=== PATIENT | female | born 1965 | race Caucasian/White ===

== ENCOUNTER → 2016-12-14 | Outpatient (CLI) | payer BC ==
[~2016-12-14] MED LIST: AMBIEN CR6.25 MG PO; ASPIRIN325 MG PO; CLONAZEPAM0.5 MG PO; FLONASE16 G1 BOTH NARES; METOPROLOL TART50 MG PO; PROTONIX40 MG PO; ULTRAM50 MG PO; ZANTAC150 MG PO
== END | disposition home or self-care (01) ==
LOC: NUC 07:17
DX: K21.9 Gastro-esophageal reflux disease without esophagitis (principal); R13.10 Dysphagia, unspecified
CPT/HCPCS: 78264; A9541

== ENCOUNTER 2017-01-19 06:35 | Day surgery (SDC) | payer BC ==
[~2017-01-19] VITALS: Ht 162.6 cm; Wt 84.0 kg
[~2017-01-19 06:35] MED LIST changes: +ACIPHEX20 MG PO; +MOTRIN IB200 MG PO; +PROSOURCE ZAC PO; +SINGULAIR10 MG PO; +TYLENOL EXTRA500 MG PO
[2017-01-19 07:22] VITALS: BP 121/79
[2017-01-19 14:00] VITALS: BP 122/70
[2017-01-19 15:00] VITALS: BP 124/69
== END 2017-01-19 15:27 | disposition home or self-care (01) ==
LOC: SDC 06:35
PROC: 09SM4ZZ Reposition Nasal Septum, Percutaneous Endoscopic Approach (ICD-10-PCS; principal; 2017-01-19)
PROC: 09BV4ZZ Excision of Left Ethmoid Sinus, Percutaneous Endoscopic Approach (ICD-10-PCS; 2017-01-19)
PROC: 09BU4ZZ Excision of Right Ethmoid Sinus, Percutaneous Endoscopic Approach (ICD-10-PCS; 2017-01-19)
PROC: 09BK4ZX Excision of Nasal Mucosa and Soft Tissue, Percutaneous Endoscopic Approach, Diagnostic (ICD-10-PCS; 2017-01-19)
DX: J32.1 Chronic frontal sinusitis (principal); J32.2 Chronic ethmoidal sinusitis; J34.2 Deviated nasal septum; J34.89 Other specified disorders of nose and nasal sinuses; J33.0 Polyp of nasal cavity; G47.30 Sleep apnea, unspecified; F32.9 Major depressive disorder, single episode, unspecified; J45.909 Unspecified asthma, uncomplicated; I49.9 Cardiac arrhythmia, unspecified; I95.9 Hypotension, unspecified; K21.9 Gastro-esophageal reflux disease without esophagitis; K44.9 Diaphragmatic hernia without obstruction or gangrene
CPT/HCPCS: 88305; J0131; J0690; J1100; J1170; J2060; J2250; J2405; J2550; J2765; J3010; J3301; J7050

== ENCOUNTER 2017-09-28 14:21 | Emergency (ER) | payer BC ==
[~2017-09-28] VITALS: Ht 162.6 cm; Wt 83.6 kg
[2017-09-28 15:22] LABS: HEMATOCRIT 43.8 % (36.0-46.0); HEMOGLOBIN 15.4 G/DL (11.9-15.5); MCH 33.8 PG (29.0-34.0); MCHC 35.2 G/DL (30.0-36.0); MCV 96.3 FL (83-99); PLATELET COUNT 303 K/uL (156-360); RBC DIS.WIDTH-CV 14.5 % (11.8-14.6); RBC DIS.WIDTH-SD 51.1 % (39-53); RED BLOOD COUNT 4.55 M/uL (3.80-5.20); WHITE BLOOD COUNT 7.7 K/uL (4.1-10.2)
[2017-09-28 15:31] LABS: CHLORIDE 104 mEq/L (99-109); POTASSIUM 3.6 mEq/L (3.7-5.4); SODIUM 139 mEq/L (136-147)
[2017-09-28 15:32] LABS: GLUCOSE 84 mg/dL (70-99)
[2017-09-28 15:36] LABS: CREATININE 0.8 mg/dL (0.6-1.3); GFR ESTIMATE (CALCULATED) > 59 mL/min/
[2017-09-28 15:37] LABS: UREA NITROGEN (BUN) 14 mg/dL (9-23)
[2017-09-28 15:42] LABS: TROP-I INTERPRETATION NEGATIVE; TROPONIN-I < 0.01 ng/mL (0.0-0.30)
[2017-09-28 17:11] LABS: APPEARANCE CLEAR ((CLEAR)); BILIRUBIN NEGATIVE; BLOOD NEGATIVE; COLOR STRAW ((YELLOW)); GLUCOSE (STRIP) NEGATIVE; KETONES NEGATIVE; LEUKOCYTES NEGATIVE; NITRITE NEGATIVE; PROTEIN (STRIP) NEGATIVE; SPECIFIC GRAVITY 1.009 (1.000-1.030); UROBILINOGEN 0.2 MG/DL (0.2-1.0)
[2017-09-28 18:32] LABS: TROP-I INTERPRETATION NEGATIVE; TROPONIN-I < 0.01 ng/mL (0.0-0.30)
[2017-09-28] MEDS ORDERED: PREDNISONE20 MG PO (18:58)
[2017-09-28] MEDS ORDERED: BENADRYL50 MG PO (18:58)
[2017-09-28] MEDS ORDERED: ANTIVERT25 MG PO (19:01)
[2017-09-28 19:16] VITALS: BP 154/91
== END 2017-09-28 19:19 | disposition home or self-care (01) ==
LOC: EME 14:21
PROVIDERS: Physician Assistant
DX: T78.40XA Allergy, unspecified, initial encounter (principal); R03.0 Elevated blood-pressure reading, without diagnosis of hypertension; J45.909 Unspecified asthma, uncomplicated; F32.9 Major depressive disorder, single episode, unspecified; F41.9 Anxiety disorder, unspecified; Z88.1 Allergy status to other antibiotic agents
CPT/HCPCS: 70450; 71020; 80048; 81003; 84484; 85027; 93005; 99281; 99284; J7512